=== PATIENT | male | born 1980 | race Caucasian/White ===

== ENCOUNTER → 2017-02-02 | Outpatient (CLI) | payer OTHER | LOC: FIMAGING 12:40 | PROVIDERS: ATTEND Family Medicine | DX: Z13.6 Encounter for screening for cardiovascular disorders (principal); I65.22 Occlusion and stenosis of left carotid artery; Z82.49 Family history of ischemic heart disease and other diseases of the circulatory system | CPT/HCPCS: 0126T ==